=== PATIENT | male | born 1975 | race Caucasian/White ===

== ENCOUNTER 2021-11-08 09:04 | Inpatient (IN) | payer MEDICAID ==
[~2021-11-08] VITALS: Ht 180.3 cm; Wt 73.5 kg
--- NOTE | 2021-11-08 09:20 | NUR ---
BIBRA 79 W/ C/O R-SIDED ABDOMINAL PAIN R/T FLANK AND BACK AREA SINCE LAST NIGHT. 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 PT A/O X4, VERBALLY RESPONSIVE. TO ER BED 6.
[2021-11-08] MEDS ORDERED: MORPHINE SULFATE INJ 2 MG/ML DISP.SYRIN ONE (09:46)
[2021-11-08] MEDS ORDERED: ONDANSETRON HCL/PF 4 MG/2 ML VIAL ONE (09:46)
--- NOTE | 2021-11-08 09:49 | NUR ---
EMPLOYMENT OFFICER AT BEDSIDE FOR XRAY
[2021-11-08] MEDS ORDERED: ONDANSETRON HCL/PF 4 MG/2 ML VIAL IVP ONE (10:00)
[2021-11-08] MEDS ORDERED: IV NS 0.9% 1,000 ML BAG IV ONE ×2 (10:00→15:00)
[2021-11-08] MEDS ORDERED: MORPHINE SULFATE INJ 2 MG/ML DISP.SYRIN IV ONE (10:00)
--- NOTE | 2021-11-08 10:07 | NUR ---
BELLING MACHINE OPERATOR AT BEDSIDE FOR US
--- NOTE | 2021-11-08 12:10 | NUR ---
URINE COLLECTED AND SENT TO THE LAB
[2021-11-08 12:24] LABS: BASOPHILS % (AUTO) 0.1 % (0.0-2.0); EOSINOPHILS % (AUTO) 0.2 % (0.0-6.0); HEMATOCRIT 49 % (39-51); HEMOGLOBIN 16.8 g/dL (13.5-17.5); LYMPHOCYTES # (AUTO) 1.6 K/uL (0.8-4.8); LYMPHOCYTES % (AUTO) 11.4 % (20.0-44.0); MEAN CORPUSCULAR HGB CONC 34 g/dl (31.0-36.0); MEAN CORPUSCULAR VOLUME 86 fL (80-96); MONOCYTES # (AUTO) 1.5 K/uL (0.1-1.30); MONOCYTES % (AUTO) 10.8 % (2.0-12.0); NEUTROPHILS # (AUTO) 10.8 K/uL (1.8-8.9); NEUTROPHILS % (AUTO) 77.5 % (43.0-81.0); PLATELET COUNT (AUTO) 184 K/uL (150-450); RED BLOOD CELL COUNT(AUTO) 5.75 MIL/uL (4.5-6.0); WHITE BLOOD COUNT (AUTO) 13.9 K/uL (4.3-11.0)
[2021-11-08 12:25] LABS: CALCIUM, SERUM 8.1 mg/dL (8.5-10.1); CARBON DIOXIDE 29 mmol/L (21-32); CHLORIDE 95 mmol/L (98-107); GLUCOSE 110 mg/dL (74-106); SODIUM SERUM 132 mmol/L (136-145); UREA NITROGEN, BLOOD 20 mg/dL (7-18)
[2021-11-08 12:32] LABS: ALANINE AMINOTRANSFERASE 23 U/L (12-78); ALBUMIN 3.6 g/dL (3.4-5.0); ALKALINE PHOSPHATASE 48 U/L (46-116); ASPARTATE AMINOTRANSFERASE 16 U/L (15-37); BILIRUBIN,DIRECT 0.4 mg/dL (0.0-0.2); BILIRUBIN,TOTAL 2.1 mg/dL (0.2-1.0); LIPASE 80 U/L (73-393); TOTAL PROTEIN, SERUM 7.3 g/dL (6.4-8.2)
--- NOTE | 2021-11-08 12:34 | NUR ---
MIDLINE INSERTION PER DR KATZ. THE ORDER IS READ BACK, VERIFIED. NOTED AND CARRIED OUT.
[2021-11-08 12:40] LABS: POTASSIUM 2.4 mmol/L (3.5-5.1)
--- NOTE | 2021-11-08 13:02 | NUR ---
COVID ANTIGEN SWAB DONE AND SENT TO THE LAB
[2021-11-08 13:28] LABS: BILIRUBIN,URINE SMALL (NEGATIVE); COLOR,URINE YELLOW (YELLOW); LEUKOCYTE ESTERASE ,URINE NEGATIVE (NEGATIVE); NITRITE, URINE NEGATIVE (NEGATIVE); PH,URINE 6.5 (5.0-8.0); PROTEIN,URINE 30 mg/dl (NEGATIVE); UGLUCOSE NEGATIVE (NEGATIVE)
--- NOTE | 2021-11-08 13:37 | NUR ---
MOVE SHEET SUBMITTED.
[2021-11-08 13:41] LABS: BACTERIA,URINE Few /HPF (None Seen); MUCUS,URINE Few /LPF (None Seen); RBC,URINE 0-2 /HPF (0-2); SQUAMOUS EPITHELIAL CELL,UR Few /HPF (None Seen)
--- NOTE | 2021-11-08 14:36 | NUR ---
HOSPITALIST SPEAKING WITH DR. KATZ.
[2021-11-08] MEDS ORDERED: HYDROCODONE/APAP 5/325MG TABLET ONE (14:49)
[2021-11-08] MEDS ORDERED: HYDROCODONE/APAP 5/325MG TABLET PO ONE (15:00)
--- NOTE | 2021-11-08 15:17 | NUR ---
ROOM 119-1
--- NOTE | 2021-11-08 15:22 | NUR ---
PT REPORT GIVEN TO SABRINA NEWMAN
--- NOTE | 2021-11-08 15:45 | NUR ---
PT TRANSFERRED TO UNIT VIA [facility] ACLS PROTOCOL. WARM HANDOFF GIVEN TO SABRINA NEWMAN.
[2021-11-08 16:00] VITALS: BP 142/90
[2021-11-08] MEDS: MORPHINE SULFATE INJ 2 MG/ML DISP.SYRIN IV PRN ×2 (16:27→20:32)
[2021-11-08] MEDS ORDERED: Z GUARD REMEDY 4 OZ OINT TP PRN (16:30)
[2021-11-08] MEDS ORDERED: ZOLPIDEM TARTRATE 5 MG TABLET PO PRN (16:30)
[2021-11-08] MEDS ORDERED: ACETAMINOPHEN 325 MG TABLET PO PRN (16:30)
[2021-11-08] MEDS ORDERED: MAG HYDROX/AL HYDROX/SIMETH 30 ML UDC PO PRN (16:30)
--- NOTE | 2021-11-08 16:30 | NUR ---
RN NOTE RECEIVED PATIENT IN STABLE CONDITION PLACED IN ROOM 119-1
[2021-11-08] MEDS: POTASSIUM CHLORIDE 20 MEQ TAB.PRT.SR PO SCH ×4 (16:49→22:04)
[2021-11-08] MEDS: POTASSIUM CL. PREMIX PERIPHER. 50 ML IV SCH ×4 (16:49→20:15)
[2021-11-08] MEDS: IV NS 0.9% 1,000 ML IV PRN (16:50)
--- NOTE | 2021-11-08 18:43 | NUR ---
RN CLOSING NOTE PATIENT RESTING IN BED, A/OX4 IS ABLE TO MAKE NEEDS KNOWN. IV ACCES SON DOMENICO 20G CURRENTLY RUNNING POTASSIUM. PATIENT DOES NOT COMPLAIN OF SOB AT THIS TIME. SAFETY MEASURES IN PLACE WILL ENDORSE TO NIGHT NURSE FOR FRANCISCO.
--- NOTE | 2021-11-08 19:30 | NUR ---
RN opening notes Pt is laying in bed comfortably watching TV. Pt is alert and orientedX4. on room air. no SOB. no S/S of distress noted. Iv site at DOMENICO# 20 is clean, intact and infusing well potassium. Tele monitor showed SR hr 72. Pt is able to ambulates with a steady gait. Safety precautions is maintained. Bed at low position, brakes locked, side rails upX2, hob elevated, bed alarm is on, and call light is within reach. Will continue to monitor.
[2021-11-08 20:00] VITALS: BP 122/89
--- NOTE | 2021-11-08 20:37 | NUR ---
Rn notes Pt is complaining of abdominal pain 10/10 on pain scale. pt requesting pain med. administered morphine 4 mg/iv/prn as ordered. VS is stable. safety precautions is maintained. will continue to monitor.
[2021-11-09] VITALS: BP 106/70
[2021-11-09] MEDS: MORPHINE SULFATE INJ 2 MG/ML DISP.SYRIN IV PRN ×6 (00:36→22:03)
[2021-11-09] MEDS: ONDANSETRON HCL/PF 4 MG/2 ML VIAL IVP PRN ×2 (03:09→18:46)
--- NOTE | 2021-11-09 03:16 | NUR ---
RN notes Pt is feeling nauseated. No vomiting. administered zofran/iv as ordered for nausea. vs is stable. will continue to monitor.
[2021-11-09 04:00] VITALS: BP 141/99
--- NOTE | 2021-11-09 04:43 | NUR ---
RN notes Pt is crying loudly and complaining of pain on abdomen 10/10 on pain scale and requesting morphine. No nausea or vomiting. administered morphine/iv as ordered for pain. vs is stable. safety precautions is maintained. will continue to monitor.
[2021-11-09] MEDS: IV NS 0.9% 1,000 ML IV PRN ×2 (05:10→19:57)
--- NOTE | 2021-11-09 06:48 | NUR ---
RN closing notes Pt is resting in bed comfortably. Pt is alert and orientedX4. on room air. no SOB. no S/S of distress noted. Iv site at DOMENICO# 20 is clean, intact and infusing well NS@ 75ml/hr. VS is stable. routine meds were given as ordered including pain management. Tele monitor showed SR hr 61. Kept Pt clean, dry and comfortable. Safety precautions is maintained. Bed at low position, brakes locked, side rails upX2, hob elevated, bed alarm is on, and call light is within reach. Will endorse to am nurse for FRANCISCO.
[2021-11-09 07:29] LABS: BASOPHILS % (AUTO) 0.2 % (0.0-2.0); EOSINOPHILS % (AUTO) 0.4 % (0.0-6.0); HEMATOCRIT 48 % (39-51); HEMOGLOBIN 16.4 g/dL (13.5-17.5); LYMPHOCYTES # (AUTO) 1.4 K/uL (0.8-4.8); LYMPHOCYTES % (AUTO) 14.7 % (20.0-44.0); MEAN CORPUSCULAR HGB CONC 34 g/dl (31.0-36.0); MEAN CORPUSCULAR VOLUME 87 fL (80-96); MONOCYTES % (AUTO) 10.6 % (2.0-12.0); NEUTROPHILS # (AUTO) 7.2 K/uL (1.8-8.9); NEUTROPHILS % (AUTO) 74.1 % (43.0-81.0); PLATELET COUNT (AUTO) 175 K/uL (150-450); RED BLOOD CELL COUNT(AUTO) 5.54 MIL/uL (4.5-6.0); WHITE BLOOD COUNT (AUTO) 9.7 K/uL (4.3-11.0)
[2021-11-09 08:00] VITALS: BP 135/83
[2021-11-09 08:12] LABS: ALBUMIN 3.6 g/dL (3.4-5.0); BILIRUBIN,DIRECT 0.3 mg/dL (0.0-0.2); BILIRUBIN,TOTAL 1.7 mg/dL (0.2-1.0); CALCIUM, SERUM 8.5 mg/dL (8.5-10.1); CREATININE 0.9 mg/dL (0.6-1.3); MAGNESIUM 2.2 mg/dL (1.8-2.4); POTASSIUM 3.8 mmol/L (3.5-5.1); TOTAL PROTEIN, SERUM 7.4 g/dL (6.4-8.2)
[2021-11-09] MEDS ORDERED: B/P MED (08:21)
[2021-11-09] MEDS ORDERED: ASPI-1169 PO (08:21)
[2021-11-09] MEDS: PANTOPRAZOLE 40 MG TABLET.DR PO SCH (08:55)
[2021-11-09 12:00] VITALS: BP 117/84
[2021-11-09] MEDS: SUCRALFATE 1 G TABLET PO SCH ×3 (14:20→21:55)
[2021-11-09 16:00] VITALS: BP 135/91
[2021-11-09] MEDS: DICYCLOMINE HCL 10 MG CAPSULE PO SCH ×2 (18:03→23:01)
[2021-11-09 20:00] VITALS: BP 143/89
--- NOTE | 2021-11-09 20:00 | NUR ---
ENGINE LATHE OPERATOR opening notes Pt is in bed comfortable Pt is alert and orientedX4. on room air. v/s stable afebrile .no SOB. no S/S of distress noted. with DOMENICO# 20 intact and patent infusing well . Tele monitor SR hr 77. due meds given as ordered no adverse side effect noted .call light within reached , all needs attended too .Safety precautions is maintained. Bed at low position, locked, side rails upX2, hob elevated, bed alarm is on, and call light is within reach. Will continue to monitor.
[2021-11-10] VITALS: BP 130/85
[2021-11-10] MEDS: MORPHINE SULFATE INJ 2 MG/ML DISP.SYRIN IV PRN ×6 (02:12→23:35)
[2021-11-10 04:00] VITALS: BP 132/87
[2021-11-10] MEDS: DICYCLOMINE HCL 10 MG CAPSULE PO SCH ×4 (05:38→23:34)
--- NOTE | 2021-11-10 06:36 | NUR ---
RN closing notes Pts in bed comfortably sleeping , on room air. sating 96% no SOB. no S/S of distress noted. Iv site at DOMENICO# 20 intact and infusing well NS@ 75ml/hr. VS is stable. Tele monitor showed SR hr 60. Kept Pt clean, dry and comfortable. Safety precautions is maintained. Bed at low position, brakes locked, side rails upX2, hob elevated, bed alarm is on, and call light is within reach. Will endorse to to rn shift for continuity of care
[2021-11-10 06:50] LABS: BASOPHILS # (AUTO) 0.1 K/uL (0.0-0.2); BASOPHILS % (AUTO) 0.8 % (0.0-2.0); EOSINOPHILS % (AUTO) 1.6 % (0.0-6.0); HEMATOCRIT 47 % (39-51); LYMPHOCYTES # (AUTO) 2.2 K/uL (0.8-4.8); LYMPHOCYTES % (AUTO) 31.5 % (20.0-44.0); MEAN CORPUSCULAR HGB CONC 34 g/dl (31.0-36.0); MEAN CORPUSCULAR VOLUME 88 fL (80-96); MONOCYTES # (AUTO) 0.7 K/uL (0.1-1.30); MONOCYTES % (AUTO) 9.5 % (2.0-12.0); NEUTROPHILS % (AUTO) 56.6 % (43.0-81.0); PLATELET COUNT (AUTO) 152 K/uL (150-450); RED BLOOD CELL COUNT(AUTO) 5.28 MIL/uL (4.5-6.0); WHITE BLOOD COUNT (AUTO) 7.1 K/uL (4.3-11.0)
[2021-11-10 07:29] LABS: CALCIUM, SERUM 8.4 mg/dL (8.5-10.1); MAGNESIUM 2.3 mg/dL (1.8-2.4); POTASSIUM 3.8 mmol/L (3.5-5.1)
--- NOTE | 2021-11-10 07:40 | NUR ---
RN OPEN NOT Pt is in bed sleping, Pt is alert and orientedX4. on room air. no SOB. no S/S of distress noted. Iv site at DOMENICO# 20 is clean, intact ,flushed with 5 ml of the NS. Pt is able to ambulates with a steady gait. Safety precautions is maintained. Bed is at low position, brakes locked, side rails upX2, hob elevated, bed alarm is on, and call light is within reach. Will continue to monitor.
[2021-11-10 08:00] VITALS: BP 104/76
[2021-11-10] MEDS: SUCRALFATE 1 G TABLET PO SCH ×4 (08:59→21:19)
[2021-11-10] MEDS: PANTOPRAZOLE 40 MG TABLET.DR PO SCH (08:59)
[2021-11-10] MEDS ORDERED: CT SWABBABLE VALVE TRANS SET 1 EA INFUS.SET MC ONE (11:26)
[2021-11-10] MEDS ORDERED: IV NS 0.9% 250 ML IV ONE (11:26)
[2021-11-10] MEDS ORDERED: IOHEXOL-300 100 ML VIAL IV ONE (11:26)
[2021-11-10 12:00] VITALS: BP 108/70
[2021-11-10 16:05] VITALS: BP 115/75
--- NOTE | 2021-11-10 19:30 | NUR ---
URBAN PLANNING TEACHER opening note Received pt in bed, awake, a/o x 4. Able to make needs known. Currently on room air, no s/sx of acute distress noted at this time. On tele monitor showing SR with HR in the 60s sating at 100%. IV access is in DOMENICO #20g, patent and intact, infusing NS @ 75 cc/hr. All safety measures in place: bed locked in low position, call light within reach. Will continue to monitor throughout the shift.
[2021-11-10 20:00] VITALS: BP 142/103
[2021-11-10] MEDS: IV NS 0.9% 1,000 ML IV PRN (23:44)
[2021-11-11] VITALS: BP 157/103
[2021-11-11] MEDS: MORPHINE SULFATE INJ 2 MG/ML DISP.SYRIN IV PRN ×6 (03:37→23:47)
[2021-11-11 04:00] VITALS: BP 155/90
[2021-11-11] MEDS: DICYCLOMINE HCL 10 MG CAPSULE PO SCH ×4 (05:12→23:04)
--- NOTE | 2021-11-11 06:48 | NUR ---
AUDIT TECH CLOSING NOTE NO SIGNIFICANT CHANGE THROUGHOUT THE SHIFT. ALL VS STABLE. SAFETY MEASURES STILL IN PLACE. WILL ENDORSE TO AM SHIFT NURSE FOR FRANCISCO.
--- NOTE | 2021-11-11 07:30 | NUR ---
RN OPENING NOTE PATIENT IS IN BED, AWAKE,ALERT ORIENTED X 4. VERBALIZES PAIN ON ABDOMEN AND BACK. BREATHING UNLABORED AND NOT IN ANY FORM OF DISTRESS. ON ROOM AIR, SATTING AT 96%. SINUS BRADYCARDIA ON CONVEX GRINDER. WITH RIGHT UPPER ARM IV LINE INFUSING WITH NS AT 75 ML/HR. BED IS LOCKED IN LOWEST POSITION, 3 SIDE RAILS UP, CALL LIGHT WITHIN REACH. WILL CONTINUE TO MONITOR THROUGHOUT SHIFT.
[2021-11-11 07:32] LABS: BASOPHILS % (AUTO) 0.4 % (0.0-2.0); EOSINOPHILS % (AUTO) 1.5 % (0.0-6.0); HEMATOCRIT 48 % (39-51); LYMPHOCYTES # (AUTO) 1.6 K/uL (0.8-4.8); LYMPHOCYTES % (AUTO) 17.3 % (20.0-44.0); MEAN CORPUSCULAR HGB CONC 34 g/dl (31.0-36.0); MEAN CORPUSCULAR VOLUME 89 fL (80-96); MONOCYTES # (AUTO) 0.6 K/uL (0.1-1.30); MONOCYTES % (AUTO) 7.1 % (2.0-12.0); NEUTROPHILS # (AUTO) 6.7 K/uL (1.8-8.9); NEUTROPHILS % (AUTO) 73.7 % (43.0-81.0); PLATELET COUNT (AUTO) 160 K/uL (150-450); RED BLOOD CELL COUNT(AUTO) 5.35 MIL/uL (4.5-6.0); WHITE BLOOD COUNT (AUTO) 9.1 K/uL (4.3-11.0)
[2021-11-11 07:35] LABS: CALCIUM, SERUM 8.5 mg/dL (8.5-10.1); CREATININE 0.9 mg/dL (0.6-1.3); MAGNESIUM 2.2 mg/dL (1.8-2.4); POTASSIUM 3.5 mmol/L (3.5-5.1)
[2021-11-11] MEDS: SUCRALFATE 1 G TABLET PO SCH ×4 (07:42→21:47)
[2021-11-11] MEDS: PANTOPRAZOLE 40 MG TABLET.DR PO SCH (07:42)
[2021-11-11 08:00] VITALS: BP 108/50
[2021-11-11 12:18] VITALS: BP 94/59
[2021-11-11] MEDS ORDERED: CYCLOBENZAPRINE 10 MG TABLET PO PRN (15:30)
--- NOTE | 2021-11-11 15:30 | NUR ---
RN NOTE SEEN AND EXAMINED BY DR SILVER WITH ORDERS MADE AND CARRIED OUT.
[2021-11-11 16:00] VITALS: BP 144/99
[2021-11-11] MEDS: IV NS 0.9% 1,000 ML IV PRN (16:22)
[2021-11-11] MEDS: Magnesium 1GM/D5W 100ML PREMIX PIGGYBACK IV SCH ×3 (16:26→18:37)
[2021-11-11] MEDS: MELOXICAM 7.5 MG TABLET PO SCH (16:27)
[2021-11-11] MEDS ORDERED: CYANOCOBALAMIN 1,000 MCG/ML VIAL IM ONE (16:30)
--- NOTE | 2021-11-11 18:53 | NUR ---
RN CLOSING NOTE PATIENT REMAINED STABLE THROUGHOUT SHIFT. BREATHING UNLABORED AND NOT IN ANY FORM OF DISTRESS. TOLERATES ROOM AIR. RIGHT UPPER ARM MIDLINE INTACT AND PATENT. ALL SAFETY PRECAUTIONS IN PLACE. WILL ENDORSE TO STRATEGIC SOURCING SPECIALIST NURSE.
--- NOTE | 2021-11-11 19:15 | NUR ---
RN NOTES RECEIVED PT FOR CONTINUITY OF CARE. PATIENT A/OX4 IN NO S/SX OF ACUTE DISTRESS AT THIS TIME; CURRENTLY ON ROOM AIR; WITH 02 SAT >95% AT THIS TIME.WITH IV ACCESS PATENT, INTACT AND FLUSHING WELL. WITH RUNNING NS@75CC/HR. WILL ENSURE SAFETY MEASURES WITHIN THE SHIFT. PATIENT BED ALARM IS ON. HEAD OF BED ELEVATED. BED IS LOCKED, IN LOWEST POSITION AND SIDE RAILS UP. CALL LIGHT WITHIN REACH OF THE PATIENT. WILL CONTINUE TO MONITOR AND REASSESS FOR ANY CHANGES AND WILL CARRY OUT ANY ONGOING AND ACTIVE MD ORDER.
[2021-11-11 20:00] VITALS: BP 148/91
[2021-11-12] MEDS: MORPHINE SULFATE INJ 2 MG/ML DISP.SYRIN IV PRN ×3 (03:49→12:19)
[2021-11-12] MEDS: IV NS 0.9% 1,000 ML IV PRN (03:49)
[2021-11-12 04:00] VITALS: BP 130/85
--- NOTE | 2021-11-12 04:00 | NUR ---
RN NOTES PATIENT REMAINED TO BE IN NO SIGNS OF ACUTE RESPIRATORY DISTRESS , SAFE ENVIRONMENT MAINTAINED FOR PT. AM PATIENT CARE ASSISTANCE RENDERED. WILL CONTINUE TO MONITOR AND REASSESS FOR ANY CHANGES THROUGHOUT THE SHIFT.
[2021-11-12] MEDS: DICYCLOMINE HCL 10 MG CAPSULE PO SCH ×2 (05:21→11:58)
--- NOTE | 2021-11-12 06:39 | NUR ---
RN CLOSING NOTE: PATIENT REMAINS IN ROOM IN NO SIGNS OF RESPIRATORY DISTRESS, PATIENT STILL ON ROOM AIR ;TOLERATING WELL SATURATING @>95% SP02. PT FOR TRIGGER POINT INJECTION TODAY WITH DR. SILVER; ALL SUPPLIES PREPARED WILL ENDORSE TO AM SHIFT. SAFETY MEASURES IMPLEMENTED, BED IN LOWEST POSITION, LOCKED, SIDE RAILS UP, CALL LIGHT WITHIN REACH. ALL NEEDS AND ORDERS ADDRESSED DURING THE SHIFT. IV ACCESS MAINTAINED INTACT, SECURED AND FLUSHING WELL. IV FLUID RUNNING PRESCRIBED ALL DUE MEDS GIVEN ORDERED & SCHEDULED ; PATIENT TOLERATED WELL. PATIENT KEPT CLEAN AND COMFORTABLE WITHIN THE SHIFT. PATIENT ENDORSED TO INCOMING SHIFT RN WITH STABLE VITAL SIGN AND FOR CONTINUITY OF CARE.
[2021-11-12 06:45] LABS: BILIRUBIN,URINE NEGATIVE (NEGATIVE); COLOR,URINE YELLOW (YELLOW); LEUKOCYTE ESTERASE ,URINE NEGATIVE (NEGATIVE); NITRITE, URINE NEGATIVE (NEGATIVE); PH,URINE 6.5 (5.0-8.0); PROTEIN,URINE NEGATIVE (NEGATIVE); UGLUCOSE NEGATIVE (NEGATIVE)
--- NOTE | 2021-11-12 07:00 | NUR ---
RN NOTE RECEIVED PATIENT IN BED RESTING ALERT ORIENTED X4 VERBALLY RESPONSIVE ON ROOM AIR O2:98% IV SITE IS ON RIGHT UPPER ARM MIDLINE INTACT PATENT ON IV HYDRATION NS 75CC/HR,AMBULATORY CONTIENT BOWEL/BLADDER.SAFETY MEASURE IMPLEMENT BED IN LOW POSITION AND LOCKED,CALL LIGHT WITHIN REACH,CONTINUE TO MONITOR.
[2021-11-12 07:15] LABS: BASOPHILS % (AUTO) 0.6 % (0.0-2.0); EOSINOPHILS % (AUTO) 3.9 % (0.0-6.0); HEMATOCRIT 43 % (39-51); HEMOGLOBIN 14.6 g/dL (13.5-17.5); LYMPHOCYTES # (AUTO) 1.7 K/uL (0.8-4.8); LYMPHOCYTES % (AUTO) 26.1 % (20.0-44.0); MEAN CORPUSCULAR HGB CONC 34 g/dl (31.0-36.0); MEAN CORPUSCULAR VOLUME 87 fL (80-96); MONOCYTES # (AUTO) 0.5 K/uL (0.1-1.30); MONOCYTES % (AUTO) 8.2 % (2.0-12.0); NEUTROPHILS # (AUTO) 3.9 K/uL (1.8-8.9); NEUTROPHILS % (AUTO) 61.2 % (43.0-81.0); PLATELET COUNT (AUTO) 152 K/uL (150-450); RED BLOOD CELL COUNT(AUTO) 4.88 MIL/uL (4.5-6.0); WHITE BLOOD COUNT (AUTO) 6.4 K/uL (4.3-11.0)
[2021-11-12] MEDS: SUCRALFATE 1 G TABLET PO SCH ×2 (07:16→11:58)
[2021-11-12] MEDS: PANTOPRAZOLE 40 MG TABLET.DR PO SCH (07:16)
[2021-11-12 07:41] LABS: BACTERIA,URINE Rare /HPF (None Seen); RBC,URINE 0-2 /HPF (0-2); SQUAMOUS EPITHELIAL CELL,UR Few /HPF (None Seen)
[2021-11-12 08:00] VITALS: BP 127/85
[2021-11-12 08:20] LABS: CALCIUM, SERUM 8.3 mg/dL (8.5-10.1); MAGNESIUM 2.3 mg/dL (1.8-2.4); POTASSIUM 3.6 mmol/L (3.5-5.1)
[2021-11-12] MEDS: MELOXICAM 7.5 MG TABLET PO SCH (08:53)
[2021-11-12] MEDS ORDERED: Sodium Bicarbonate 50 MEQ in IV NS 0.9% 1,000 ML IV PRN (10:00)
[2021-11-12] MEDS ORDERED: Sodium Bicarbonate 50 MEQ/50 ML VIAL IV PRN (10:00)
[2021-11-12] MEDS ORDERED: LIDOCAINE 1%-EPI 1:100,000 20 ML VIAL TP ONE (10:00)
[2021-11-12] MEDS ORDERED: TRIAMCINOLONE ACETONIDE SUSP 40 MG/ML VIAL IM ONE (10:00)
[2021-11-12] MEDS ORDERED: CYANOCOBALAMIN 1,000 MCG/ML VIAL IM ONE (11:00)
--- NOTE | 2021-11-12 14:00 | NUR ---
RN NOTE DR BERMAN DID IM INJECTIONS ON PATIENT BACK CONTINUE TO MONITOR.
[2021-11-12] MEDS ORDERED: BUPIVACAINE MPF W/EPI 0.25% 30 ML VIAL IJ ONE (14:30)
[2021-11-12] MEDS ORDERED: CYCL10TA9 PO (15:21)
[2021-11-12] MEDS ORDERED: MELO15TA13 PO (15:21)
--- NOTE | 2021-11-12 15:45 | NUR ---
MONEY MARKET DEALER NOTE DR WILLS SAW PATIENT AND ORDERED DISCHARGE,PATIENT DISCHARGED FROM HOSPITAL IN STABLE CONDITION,AFTER HE SIGNED DISCHARGE PAPER AND BELONGINGS, WITH ALL BELONGINGS NO PAIN NO DISCOMFORT NOTED,REMOVED IV LINE,NO BLEEDING NOTED,PATIENT LEFT HOSPITAL IN STABLE CONDITION BY PRIVATE CAR.VITAL SIGN BP 132/60 HR 64 RR:18 O2:100% ON ROOM AIR T:98.1.
[2021-11-13] MEDS ORDERED: MORPHINE SULFATE INJ 4 MG/ML DISP.SYRIN ONE (18:33)
[2021-11-15] MEDS ORDERED: PANT40TA2 PO (17:34)
[2021-11-15] MEDS ORDERED: POLY17PO4 PO (17:34)
[2021-11-15] MEDS ORDERED: OLME20TA13 PO (17:34)
== END 2021-11-12 16:18 | disposition home or self-care (01) | DRG 425 ==
LOC: ER 09:14 → TELE1 15:32 → MEDSG1 11-11 09:13
PROVIDERS: ADMIT Nurse Practitioner Family; ATTEND Nurse Practitioner Family
PROC: 3E0T3BZ Introduction of Anesthetic Agent into Peripheral Nerves and Plexi, Percutaneous Approach (ICD-10-PCS; principal; 2021-11-12)
PROC: 3E0T33Z Introduction of Anti-inflammatory into Peripheral Nerves and Plexi, Percutaneous Approach (ICD-10-PCS; 2021-11-12)
DX: E87.6 Hypokalemia (principal); D18.03 Hemangioma of intra-abdominal structures; D72.829 Elevated white blood cell count, unspecified; E80.6 Other disorders of bilirubin metabolism; I70.0 Atherosclerosis of aorta; R11.2 Nausea with vomiting, unspecified; Z20.822 Contact with and (suspected) exposure to COVID-19; K76.9 Liver disease, unspecified; N28.1 Cyst of kidney, acquired; F43.9 Reaction to severe stress, unspecified; R79.89 Other specified abnormal findings of blood chemistry; Z87.891 Personal history of nicotine dependence; Z95.2 Presence of prosthetic heart valve; Z80.9 Family history of malignant neoplasm, unspecified; Z82.49 Family history of ischemic heart disease and other diseases of the circulatory system
CPT/HCPCS: 36415; 71045-TC; 76705-TC; 80048-TC; 80061-TC; 80076-TC; 81001; 83605-TC; 83690-TC; 83735-TC; 84484-TC; 85025-TC; 85730-TC; 87081-TC; 87086-TC; C9803; G0378; J2270; J2405; J3301; J3420; J3475; J3480; J3490; J7030; J7050; Q9967

== ENCOUNTER 2021-11-13 16:49 | Inpatient (IN) | payer MEDICAID ==
[~2021-11-13] VITALS: Ht 180.3 cm; Wt 74.4 kg
[~2021-11-13 16:49] MED LIST: ASPI-1169 PO; B/P MED; CYCL10TA9 PO; MELO15TA13 PO
[2021-11-13] MEDS ORDERED: KETOROLAC TROMETHAMINE 15 MG/ML VIAL ONE (17:10)
--- NOTE | 2021-11-13 17:15 | NUR ---
DR KATZ AT BEDSIDE W/ PT.
--- NOTE | 2021-11-13 17:24 | NUR ---
IV LINE ESTABLISHED ON RAC #20, BLOOD DRAWN AND SENT TO LAB.
[2021-11-13] MEDS ORDERED: KETOROLAC TROMETHAMINE INJ 30 MG/ML VIAL IV ONE (17:30)
[2021-11-13] MEDS ORDERED: IV NS 0.9% 1,000 ML BAG IV ONE (17:30)
[2021-11-13 17:42] LABS: BASOPHILS % (AUTO) 0.2 % (0.0-2.0); EOSINOPHILS % (AUTO) 0.1 % (0.0-6.0); HEMATOCRIT 52 % (39-51); HEMOGLOBIN 17.3 g/dL (13.5-17.5); LYMPHOCYTES # (AUTO) 0.7 K/uL (0.8-4.8); LYMPHOCYTES % (AUTO) 5.3 % (20.0-44.0); MEAN CORPUSCULAR HGB CONC 34 g/dl (31.0-36.0); MEAN CORPUSCULAR VOLUME 87 fL (80-96); MONOCYTES # (AUTO) 0.6 K/uL (0.1-1.30); MONOCYTES % (AUTO) 4.4 % (2.0-12.0); PLATELET COUNT (AUTO) 255 K/uL (150-450); WHITE BLOOD COUNT (AUTO) 13.3 K/uL (4.3-11.0)
[2021-11-13 17:51] LABS: CALCIUM, SERUM 10.4 mg/dL (8.5-10.1); CREATININE 1.3 mg/dL (0.6-1.3); POTASSIUM 3.9 mmol/L (3.5-5.1)
[2021-11-13 17:57] LABS: ALBUMIN 4.9 g/dL (3.4-5.0); BILIRUBIN,DIRECT 0.2 mg/dL (0.0-0.2); BILIRUBIN,TOTAL 0.9 mg/dL (0.2-1.0); TOTAL PROTEIN, SERUM 8.8 g/dL (6.4-8.2)
[2021-11-13] MEDS ORDERED: ONDANSETRON HCL/PF 4 MG/2 ML VIAL ONE ×2 (17:58→19:35)
--- NOTE | 2021-11-13 18:12 | NUR ---
COVID SWAB OBTAINED AND SENT TO LAB
--- NOTE | 2021-11-13 18:22 | NUR ---
CALLED NURSING SUP REGARDING PT BED
[2021-11-13] MEDS ORDERED: ONDANSETRON HCL/PF 4 MG/2 ML VIAL IV ONE (18:30)
[2021-11-13] MEDS ORDERED: Z GUARD REMEDY 4 OZ OINT TP PRN (18:30)
[2021-11-13] MEDS ORDERED: ACETAMINOPHEN 325 MG TABLET PO PRN (18:30)
[2021-11-13] MEDS ORDERED: MAG HYDROX/AL HYDROX/SIMETH 30 ML UDC PO PRN (18:30)
[2021-11-13] MEDS ORDERED: MAGNESIUM HYDROXIDE 30 ML UDC PO PRN (18:30)
[2021-11-13] MEDS ORDERED: HYDROCODONE/APAP 5/325MG TABLET PO PRN (18:30)
[2021-11-13] MEDS ORDERED: ZOLPIDEM TARTRATE 5 MG TABLET PO PRN (18:30)
[2021-11-13] MEDS: MORPHINE SULFATE INJ 2 MG/ML DISP.SYRIN IV PRN ×2 (18:37→22:57)
--- NOTE | 2021-11-13 18:37 | NUR ---
PAGED DR. SILVER
--- NOTE | 2021-11-13 18:55 | NUR ---
PT REFUSED NGT INSERTION; DR KATZ MADE AWARE.
[2021-11-13] MEDS: ONDANSETRON HCL/PF 4 MG/2 ML VIAL IVP PRN (19:39)
[2021-11-13] MEDS ORDERED: METOCLOPRAMIDE HCL 10 MG/2 ML VIAL ONE (20:12)
[2021-11-13] MEDS: METOCLOPRAMIDE HCL 10 MG/2 ML VIAL IV PRN (20:15)
--- NOTE | 2021-11-13 21:02 | NUR ---
CALLED TO GIVE REPORT AND RN WILL CALL BACK
--- NOTE | 2021-11-13 21:55 | NUR ---
Note paul in ED - 11/13/21 at 2200 by TRACE PT TOLERATING TRANSFUSION WELL NO S/S OF REACTION. INFUSION RATE INCREASED TO 200ML/HR. V/S REMAIN WNL.
--- NOTE | 2021-11-13 21:57 | NUR ---
PT TRANSPORTED TO [facility] VIA GURNEY IN STABLE CONDITION
--- NOTE | 2021-11-13 22:00 | NUR ---
MS RN OPENING NOTE RECEIVED PT FROM ER NURSE, PT CAME WITH C/O OF INTRACTABLE ABDOMINAL PAIN WITH NAUSEA AND VOMITING. WITH DIAGNOSIS OF ILEUS/ABDOMINAL PAIN. CURRENTLY ON ROOM AIR, WITH NO SIGNS OF RESPIRATORY DISTRESS AT THIS TIME. IV LINE NOTED IN RAC #20g, PATENT AND INTACT. FLUSHES WELL. PT STILL COMPLAINS OF PAIN WITH FACIAL GRIMACE AND MOANING. KEPT HEAD OF THE BED ELEVATED. TAUGHT PT PROPER BREATHING AND RELAXATION TECHNIQUES TO HELP LESSEN THE PAIN. ALL SAFETY MEASURES IN PLACE: BED LOCKED IN LOW POSITION. CALL LIGHT WITHIN REACH. SIDE RAILS UP X 3. WILL CONTINUE TO MONITOR CLOSELY.
[2021-11-13] MEDS: IV D5/0.45 NACL 1,000 ML IV PRN (22:09)
[2021-11-14] MEDS: MORPHINE SULFATE INJ 2 MG/ML DISP.SYRIN IV PRN ×4 (03:04→20:34)
[2021-11-14 04:00] VITALS: BP 124/74
[2021-11-14] MEDS: IV D5/0.45 NACL 1,000 ML IV PRN ×3 (06:22→22:49)
[2021-11-14 07:10] LABS: BASOPHILS % (AUTO) 0.1 % (0.0-2.0); EOSINOPHILS % (AUTO) 0.2 % (0.0-6.0); HEMATOCRIT 45 % (39-51); HEMOGLOBIN 15.5 g/dL (13.5-17.5); LYMPHOCYTES # (AUTO) 0.9 K/uL (0.8-4.8); LYMPHOCYTES % (AUTO) 7.8 % (20.0-44.0); MEAN CORPUSCULAR HGB CONC 34 g/dl (31.0-36.0); MEAN CORPUSCULAR VOLUME 87 fL (80-96); NEUTROPHILS # (AUTO) 9.5 K/uL (1.8-8.9); NEUTROPHILS % (AUTO) 82.9 % (43.0-81.0); PLATELET COUNT (AUTO) 197 K/uL (150-450); WHITE BLOOD COUNT (AUTO) 11.5 K/uL (4.3-11.0)
--- NOTE | 2021-11-14 07:20 | NUR ---
MS RN OPENING NOTE RECEIVED PATIENT IN BED AWAKE, AO X 2-3. NO S/SX OF ACUTE DISTRESS NOTED AT THIS TIME, RESPIRATION UNLABORED, SATING AT 99% ON ROOM AIR, TOLERATING WELL. IV SITE NOTED AT RAC 18G, INTACT AND PATENT,IV D5 1/2 NS RUNNING AT 125 CC/HR. PATIENT IS CONTINENT, ABLE TO USE URINAL. ALL SAFETY MEASURES IN PLACE: BED LOCKED IN LOW POSITION, BED ALARM ON. SIDE RAILS UP X 2. CALL LIGHT WITHIN REACH. WILL CONTINUE TO MONITOR AND REASSESS FOR ANY CHANGES.
[2021-11-14 07:37] LABS: CALCIUM, SERUM 9.2 mg/dL (8.5-10.1); CREATININE 1.1 mg/dL (0.6-1.3); MAGNESIUM 2.4 mg/dL (1.8-2.4); PHOSPHORUS 5.4 mg/dL (2.5-4.9); POTASSIUM 3.9 mmol/L (3.5-5.1)
[2021-11-14 08:00] VITALS: BP 187/96
[2021-11-14] MEDS ORDERED: hydrALAZINE HCL IV 20 MG VIAL IV PRN (08:50)
[2021-11-14] MEDS: ONDANSETRON HCL/PF 4 MG/2 ML VIAL IVP PRN (09:05)
[2021-11-14] MEDS: PANTOPRAZOLE 40 MG VIAL IV SCH (09:06)
[2021-11-14] MEDS: METOCLOPRAMIDE HCL 10 MG/2 ML VIAL IV PRN ×2 (11:28→22:15)
[2021-11-14 16:00] VITALS: BP 121/84
--- NOTE | 2021-11-14 18:58 | NUR ---
MS RN CLOSING NOTE PATIENT REMAINS IN BED, AWAKE, AO X 2-3. ABLE TO MAKE SIMPLE NEEDS KNOWN. NO COMPLAINTS OF PAIN/DISCOMFORT AT THIS TIME. ON RA, BREATHING EVEN AND UNLABORED. IV SITE ON R AC #18G, INTACT AND PATENT, WITH D5 1/2 NS RUNNING AT 125 ML/HR. IV DRESSING C/D/I WITH NO S/S OF INFILTRATION. PT. USES URINAL. SKIN INTACT. ALL SAFETY MEASURES REMAINS IN PLACE: BED LOCKED IN LOW POSITION, BED ALARM ON. SIDE RAILS UP X 2. CALL LIGHT AND BELONGINGS WITHIN EASY REACH. WILL ENDORSE CONTINUITY OF CARE TO CAMPUS SUPERVISOR RN.
--- NOTE | 2021-11-14 19:10 | NUR ---
RN OPENING NOTE PATIENT IN BED, AWAKE. A/O X 3 AT THIS TIME. PATIENT IS ON RA, TOLERATING WELL. BREATHING EVEN AND UNLABORED. PATIENT HAS A RAC 20 G WITH D5 1/2 NS ONGOING AT 125 ML/HR. NO REPORTS OF N/V, OR PAIN AT THIS TIME. PATIENT NOT IN ANY APPARENT DISTRESS. SAFETY MEASURES IN PLACE: BED LOCKED AND IN LOWEST POSITION, CALL LIGHT WITHIN REACH, SIDE RAILS UP. WILL MONITOR PATIENT CLOSELY.
[2021-11-14 20:00] VITALS: BP 127/90
--- NOTE | 2021-11-14 20:34 | NUR ---
RN NOTE MORPHINE GIVEN FOR AB PAIN 9/10 ON THE PAIN SCALE. WILL REASSESS AT A LATER TIME.
--- NOTE | 2021-11-14 22:15 | NUR ---
RN NOTE PATIENT COMPLAINING OF NAUSEA, REGLAN GIVEN TO RELIEVE NAUSEA. NO EMESIS PRESENT
[2021-11-15] MEDS: MORPHINE SULFATE INJ 2 MG/ML DISP.SYRIN IV PRN ×4 (01:24→11:58)
--- NOTE | 2021-11-15 01:25 | NUR ---
RN NOTE MORPHINE GIVEN FOR ABD PAIN 8/10 ON THE PAIN SCALE. WILL REASSESS AT A LATER TIME.
[2021-11-15 04:00] VITALS: BP 132/95
[2021-11-15 06:48] LABS: BASOPHILS % (AUTO) 0.1 % (0.0-2.0); EOSINOPHILS % (AUTO) 0.2 % (0.0-6.0); HEMATOCRIT 47 % (39-51); HEMOGLOBIN 16.1 g/dL (13.5-17.5); LYMPHOCYTES # (AUTO) 1.3 K/uL (0.8-4.8); LYMPHOCYTES % (AUTO) 12.3 % (20.0-44.0); MEAN CORPUSCULAR HGB CONC 34 g/dl (31.0-36.0); MEAN CORPUSCULAR VOLUME 89 fL (80-96); MONOCYTES # (AUTO) 0.7 K/uL (0.1-1.30); MONOCYTES % (AUTO) 6.7 % (2.0-12.0); NEUTROPHILS # (AUTO) 8.3 K/uL (1.8-8.9); NEUTROPHILS % (AUTO) 80.7 % (43.0-81.0); PLATELET COUNT (AUTO) 219 K/uL (150-450); RED BLOOD CELL COUNT(AUTO) 5.33 MIL/uL (4.5-6.0); WHITE BLOOD COUNT (AUTO) 10.3 K/uL (4.3-11.0)
--- NOTE | 2021-11-15 06:49 | NUR ---
RN CLOSING NOTE PATIENT IN BED, AWAKE. A/O X 3 AT THIS TIME. PATIENT IS ON RA, TOLERATING WELL. BREATHING EVEN AND UNLABORED. PATIENT HAS A LAC 20 G WITH D5 1/2 NS ONGOING AT 125 ML/HR, INFUSING WELL. RAC IV ACCESS INFILTRATED, ICE PACK APPLIED AND EXTREMITY ELEVATED. NO REPORTS OF N/V. PATIENT NOT IN ANY APPARENT DISTRESS. SAFETY MEASURES IN PLACE: BED LOCKED AND IN LOWEST POSITION, CALL LIGHT WITHIN REACH, SIDE RAILS UP. ALL NEEDS MET AND ATTENDED. ALL ORDERS CARRIED OUT. WILL ENDORSE TO DAY SHIFT NURSE FOR FRANCISCO.
[2021-11-15 08:00] VITALS: BP 121/91
[2021-11-15] MEDS: PANTOPRAZOLE 40 MG VIAL IV SCH (08:01)
[2021-11-15] MEDS: METOCLOPRAMIDE HCL 10 MG/2 ML VIAL IV PRN (08:03)
--- NOTE | 2021-11-15 08:18 | NUR ---
RN OPENING NOTE PATIENT IN BED, AWAKE. A/O X 3 AT THIS TIME. PATIENT IS ON RA, TOLERATING WELL. BREATHING EVEN AND UNLABORED. PATIENT HAS A LAC 20 G WITH D5 1/2 NS ONGOING AT 125 ML/HR, INFUSING WELL. RAC IV ACCESS INFILTRATED, ICE PACK APPLIED AND EXTREMITY ELEVATED. PATIENT REPORTING NAUSEA, WILL GIVE PRN REGLAN. PATIENT NOT IN ANY APPARENT DISTRESS. SAFETY MEASURES IN PLACE: BED LOCKED AND IN LOWEST POSITION, CALL LIGHT WITHIN REACH, SIDE RAILS UP. WILL CONTINUE PLAN OF CARE AND ANTICIPATE NEEDS.
[2021-11-15] MEDS ORDERED: DIATR MEGLU/DIATRIZOATE SODIUM 120 ML BOTTLE (GASTROGRAPHIN) ONE (08:34)
[2021-11-15 08:38] LABS: ALBUMIN 3.9 g/dL (3.4-5.0); BILIRUBIN,TOTAL 0.7 mg/dL (0.2-1.0); CALCIUM, SERUM 9.2 mg/dL (8.5-10.1); MAGNESIUM 2.2 mg/dL (1.8-2.4); PHOSPHORUS 4.8 mg/dL (2.5-4.9); POTASSIUM 3.9 mmol/L (3.5-5.1); TOTAL PROTEIN, SERUM 7.3 g/dL (6.4-8.2)
[2021-11-15 16:00] VITALS: BP 144/78
[2021-11-15] MEDS ORDERED: POLY17PO4 PO (17:34)
[2021-11-15] MEDS ORDERED: OLME20TA13 PO (17:34)
[2021-11-15] MEDS ORDERED: PANT40TA2 PO (17:34)
--- NOTE | 2021-11-15 18:03 | NUR ---
PATIENT HAS BEEN DISCHARGED HOME. IV ACCESS HAS BEEN DISCONTINUED, NO BLEEDING NOTED. PATIENT SIGNED BELONGINGS LIST AND DISCHARGE INSTRUCTIONS. DISCHARGE TEACHING PERFORMED AT BEDSIDE, PATIENT GAVE VERBAL UNDERSTANDING OF DISCHARGE INSTRUCTIONS. HOSPITAL ID BAND REMOVED. PATIENT WAS WHEELED TO THE FRONT LOBBY WHERE HE WAS RECEIVED BY HIS AUNT. PATIENT ENTERED A PRIVATE VEHICLE AND LEFT HOSPITAL PROPERTY IN STABLE CONDITION.
== END 2021-11-15 17:59 | disposition home or self-care (01) | DRG 247 ==
LOC: ER 16:51 → MEDSG1 20:25
PROVIDERS: ADMIT Student in an Organized Health Care Education/Training Program; ATTEND Nurse Practitioner Acute Care
DX: K56.7 Ileus, unspecified (principal); E87.1 Hypo-osmolality and hyponatremia; K76.89 Other specified diseases of liver; E86.0 Dehydration; I10 Essential (primary) hypertension; Z95.2 Presence of prosthetic heart valve; Z87.891 Personal history of nicotine dependence; D72.829 Elevated white blood cell count, unspecified; N20.0 Calculus of kidney; A08.4 Viral intestinal infection, unspecified; K29.70 Gastritis, unspecified, without bleeding; Z20.822 Contact with and (suspected) exposure to COVID-19; N28.9 Disorder of kidney and ureter, unspecified; R93.5 Abnormal findings on diagnostic imaging of other abdominal regions, including retroperitoneum
CPT/HCPCS: 36415; 74250-TC; 80048-TC; 80053-TC; 80076-TC; 83690-TC; 83735-TC; 84100-TC; 85025-TC; 87081-TC; C9113; C9803; G0378; J0360; J1885; J2270; J2405; J2765; J3490; J7030; Q9963

== ENCOUNTER 2021-12-11 11:16 | Emergency (ER) | payer MEDICAID ==
[~2021-12-11] VITALS: Ht 180.3 cm; Wt 74.8 kg
[~2021-12-11 11:16] MED LIST changes: -ASPI-1169 PO; -B/P MED; -CYCL10TA9 PO; -MELO15TA13 PO; +OLME20TA13 PO; +PANT40TA2 PO; +POLY17PO4 PO
[2021-12-11] MEDS ORDERED: ONDANSETRON 4 MG TAB.RAPDIS ONE (12:14)
[2021-12-11] MEDS ORDERED: MAG HYDROX/AL HYDROX/SIMETH 30 ML UDC ONE (12:14)
[2021-12-11] MEDS ORDERED: FAMOTIDINE (20 MG) 20 MG TABLET ONE (12:14)
[2021-12-11] MEDS ORDERED: MAG HYDROX/AL HYDROX/SIMETH 30 ML UDC PO ONE (12:30)
[2021-12-11] MEDS ORDERED: FAMOTIDINE (20 MG) 20 MG TABLET PO ONE (12:30)
[2021-12-11] MEDS ORDERED: ONDANSETRON 4 MG TAB.RAPDIS SL ONE (12:30)
[2021-12-11 13:15] LABS: BASOPHILS % (AUTO) 0.1 % (0.0-2.0); EOSINOPHILS % (AUTO) 0.1 % (0.0-6.0); HEMATOCRIT 47 % (39-51); HEMOGLOBIN 15.9 g/dL (13.5-17.5); LYMPHOCYTES # (AUTO) 0.5 K/uL (0.8-4.8); LYMPHOCYTES % (AUTO) 4.6 % (20.0-44.0); MEAN CORPUSCULAR HGB CONC 34 g/dl (31.0-36.0); MEAN CORPUSCULAR VOLUME 87 fL (80-96); MONOCYTES # (AUTO) 0.5 K/uL (0.1-1.30); MONOCYTES % (AUTO) 5.2 % (2.0-12.0); NEUTROPHILS # (AUTO) 8.8 K/uL (1.8-8.9); PLATELET COUNT (AUTO) 173 K/uL (150-450); RED BLOOD CELL COUNT(AUTO) 5.38 MIL/uL (4.5-6.0); WHITE BLOOD COUNT (AUTO) 9.8 K/uL (4.3-11.0)
[2021-12-11 13:36] LABS: CALCIUM, SERUM 9.8 mg/dL (8.5-10.1); CREATININE 1.1 mg/dL (0.6-1.3); POTASSIUM 3.4 mmol/L (3.5-5.1)
[2021-12-11 13:42] LABS: ALBUMIN 4.4 g/dL (3.4-5.0); BILIRUBIN,DIRECT 0.4 mg/dL (0.0-0.2); BILIRUBIN,TOTAL 2.3 mg/dL (0.2-1.0); TOTAL PROTEIN, SERUM 8.2 g/dL (6.4-8.2)
[2021-12-11] MEDS ORDERED: FAMO20TA8 PO (14:36)
[2021-12-11] MEDS ORDERED: ONDA4TAB5 PO (14:36)
[2021-12-11 14:43] VITALS: BP 132/88
== END 2021-12-11 14:44 | disposition home or self-care (01) ==
LOC: ER 11:18
DX: R10.13 Epigastric pain (principal); R11.2 Nausea with vomiting, unspecified; Z79.899 Other long term (current) drug therapy
CPT/HCPCS: 99284; 85025; 80048; 83690; 80076; 36415; Q0162